=== PATIENT | female | born 1955 | race American Indian/Alaskan Native ===

== ENCOUNTER 2017-02-09 06:29 | Day surgery (SDC) | payer MEDICAID ==
[2017-02-09 07:09] VITALS: BMI 25.4
[2017-02-09] MEDS ORDERED: Lactated Ringer's 500 ML IV ONE ×2 (08:44)
[2017-02-09] MEDS ORDERED: Propofol 10 mg/ml Inj (20 ML) ONE (08:48)
[2017-02-09] MEDS ORDERED: Lidocaine Hydrochloride 10 ML INJ ONE (09:28)
[2017-02-09 09:39] VITALS: TEMP 98
[2017-02-09 10:48] VITALS: O2SAT 100
[2017-02-09 11:10] VITALS: BP 147/80; PULSE 75; RESP 18
== END 2017-02-09 10:21 | disposition home or self-care (01) ==
LOC: C.ENDO 06:29
PROVIDERS: ATTEND Internal Medicine Gastroenterology
DX: Z12.11 Encounter for screening for malignant neoplasm of colon (principal); D12.5 Benign neoplasm of sigmoid colon; K62.1 Rectal polyp; K64.8 Other hemorrhoids; K57.30 Diverticulosis of large intestine without perforation or abscess without bleeding; K44.9 Diaphragmatic hernia without obstruction or gangrene; K25.9 Gastric ulcer, unspecified as acute or chronic, without hemorrhage or perforation; K29.70 Gastritis, unspecified, without bleeding; K21.9 Gastro-esophageal reflux disease without esophagitis; I10 Essential (primary) hypertension; J45.909 Unspecified asthma, uncomplicated; D64.9 Anemia, unspecified; Z79.899 Other long term (current) drug therapy